=== PATIENT | female | born 1960 | race Two or more races ===

== ENCOUNTER → 2021-01-14 | Outpatient (REF) | payer OTHER | LOC: M LAB REF 17:19 | PROVIDERS: ATTEND Orthopaedic Surgery | DX: L85.1 Acquired keratosis [keratoderma] palmaris et plantaris (principal) ==

== ENCOUNTER → 2022-11-02 | Outpatient (CLI) | payer BC, OTHER | LOC: M SLEEP HO 09:29 | PROVIDERS: ATTEND Physician Assistant | DX: R40.0 Somnolence (principal); R06.83 Snoring; G47.30 Sleep apnea, unspecified ==